=== PATIENT | female | born 1995 | race Caucasian/White ===

== ENCOUNTER 2019-03-20 11:08 | Emergency (ER) | payer OTHER ==
[~2019-03-20] VITALS: Ht 170.2 cm; Wt 59.0 kg
[2019-03-20 11:41] LABS: *URINE HCG, QUAL NEGATIVE (NEGATIVE)
--- NOTE | 2019-03-20 11:45 | NUR ---
PATIENT WAS SEEN BY MD FOR C/O TOE PAIN.
[2019-03-20] MEDS ORDERED: NAPROXEN 500 MG TABLET ONE (12:08)
[2019-03-20] MEDS ORDERED: NAPROXEN 500 MG TABLET PO ONE (12:15)
--- NOTE | 2019-03-20 12:39 | NUR ---
ADWOA TAPE APPLIED BY Vinnie HALL LVN. SURGICAL SHOE GIVEN. DC, RX AND FOLLOW UP INSTRUCTIONS GIVEN AND EXPLAINED TO PATIENT WHO STATES SHE UNDERSTANDS ALL INSTRUCTIONS.
== END 2019-03-20 12:40 | disposition home or self-care (01) ==
LOC: ER 11:09
DX: S92.421B Displaced fracture of distal phalanx of right great toe, initial encounter for open fracture (principal); S91.111A Laceration without foreign body of right great toe without damage to nail, initial encounter; W20.8XXA Other cause of strike by thrown, projected or falling object, initial encounter; Y93.89 Activity, other specified; Y92.89 Other specified places as the place of occurrence of the external cause; Y99.8 Other external cause status
CPT/HCPCS: 73660; 84703; A4663